=== PATIENT | female | born 1980 | race Caucasian/White ===

== ENCOUNTER 2017-04-26 15:15 | Outpatient (CLI) | payer OTHER | END 2017-04-26 15:16 | disposition home or self-care (01) | LOC: LAB.R 15:15 | PROVIDERS: ATTEND Registered Nurse | DX: R82.90 Unspecified abnormal findings in urine (principal) | CPT/HCPCS: 87086 ==

== ENCOUNTER 2017-04-30 14:01 | Outpatient (CLI) | payer OTHER ==
[2017-04-30 14:44] LABS: BASOPHILS % (AUTO) 0.3 %; EOSINOPHILS # (AUTO) 0.4 10^3/uL (0.0-0.7); EOSINOPHILS % (AUTO) 4.6 %; HGB - HEMOGLOBIN 12.4 g/dL (12.0-16.0); LYMPHOCYTES # (AUTO) 1.9 10^3/uL (1.5-3.5); MEAN CORPUSCULAR HEMOGLOBIN 31.4 pg (27.0-31.0); MEAN CORPUSCULAR HGB CONC 34.3 g/dL (32.0-36.0); MEAN CORPUSCULAR VOLUME 91.5 fL (81.0-99.0); MEAN PLATELET VOLUME 8.1 fL (7.9-10.8); MONOCYTES # (AUTO) 0.5 10^3/uL (0.0-1.0); MONOCYTES % (AUTO) 5.8 %; NEUTROPHILS # (AUTO) 6.1 10^3/uL (1.5-6.6); NEUTROPHILS % (AUTO) 68.3 %; PLT - PLATELET COUNT 171 10^3/uL (130-450); RED BLOOD COUNT 3.97 10^6/uL (4.20-5.40); RED CELL DISTRIBUTION WIDTH 13.1 % (12.0-15.0); WHITE BLOOD COUNT 8.9 x10^3/uL (4.8-10.8)
[2017-04-30 14:55] LABS: BILIRUBIN,URINE NEGATIVE (NEGATIVE); GLUCOSE, URINE (UA) NEGATIVE (NEGATIVE); KETONES,URINE (UA) NEGATIVE (NEGATIVE); LEUKOCYTE ESTERASE, URINE NEGATIVE (NEGATIVE); NITRITE,URINE NEGATIVE (NEGATIVE); OCCULT BLOOD,URINE NEGATIVE (NEGATIVE); PROTEIN,URINE NEGATIVE (NEGATIVE); UROBILINOGEN,URINE 0.2 (NORMAL) E.U./dL (NORMAL)
[2017-04-30 14:59] LABS: CLARITY,URINE CLEAR (CLEAR)
[2017-04-30 15:01] LABS: BACTERIA,URINE None Seen /HPF (None Seen); MUCUS,URINE Marked Strands; RBC,URINE None Seen /HPF (0-5); SQUAMOUS EPITHELIAL CELL,UR FEW Squamous (<= Few)
[2017-05-01 13:41] LABS: HEPATITIS B SURFACE ANTIGEN NON-REACTIVE (NON-REACTIVE)
[2017-05-01 14:17] LABS: HIV AG/AB 4TH GEN NON-REACTIVE (NON-REACTIVE)
== END 2017-04-30 14:02 | disposition home or self-care (01) ==
LOC: LAB 14:01
PROVIDERS: ATTEND Registered Nurse
DX: Z36.9 Encounter for antenatal screening, unspecified (principal)
CPT/HCPCS: 36415; 81001; 81599; 85025; 86592; 86762; 86850; 86900; 86901; 87340; 87389

== ENCOUNTER 2017-07-13 07:48 | Outpatient (CLI) | payer OTHER ==
--- NOTE | 2017-07-16 15:19 | Ultrasound Report ---
OB ULTRASOUND: 07/13/2017 CLINICAL INDICATION: anatomy. TECHNIQUE: Real-time scanning was performed with goodwill representative static images obtained. LAST MENSTRUAL PERIOD -- Clinical Age -- US Age 22 weeks 2 days EFW Hadlock 508 grams EFW% Hadlock -- Heart Rate 130 bpm EDC -- US EDC 11/14/2017 BPD Hadlock 22 weeks 1 day; Mean mm 53 HC Hadlock 22 weeks 0 days; Mean mm 198 AC Hadlock 22 weeks 6 days; Mean mm 181 FL Hadlock 22 weeks 1 day; Mean mm 38 Presentation variable Placental Location anterior Cervical Length TA; 4.6 cm Amniotic Fluid subjectively normal; MVP 6.9 cm FINDINGS There is a single viable intrauterine gestation, in variable presentation. heart rate is 130 BPM. The placenta is anterior, without evidence of previa. Amniotic fluid volume is subjectively normal, with the deepest pocket of 6.9 cm. By size, the fetus measures 22 weeks 2 days (uncertain LMP). The following anatomic structures were visualized and appear normal: The intracranial contents, including the ventricles and posterior fossa; the lips and orbits; the spine; the heart, including 4 chamber view and outflow tracts, and diaphragm; the abdominal contents, including the stomach, the bilateral kidneys, and urinary bladder, as well as a normal 3-vessel cord insertion; 4 limbs. No free fluid or adnexal lesion is appreciated. IMPRESSION: SINGLE VIABLE INTRAUTERINE GESTATION, MEASURING 22 WEEKS 2 DAYS BY SIZE. NORMAL ANATOMIC SURVEY. TD: 07/13/2017 11:49 MTDD
== END 2017-07-13 07:49 | disposition home or self-care (01) ==
LOC: DI 07:48
PROVIDERS: ATTEND Nurse Practitioner Obstetrics & Gynecology
DX: Z36.9 Encounter for antenatal screening, unspecified (principal)
CPT/HCPCS: 76811

== ENCOUNTER 2017-08-16 08:39 | Outpatient (CLI) | payer OTHER ==
[2017-08-16 09:58] LABS: HGB - HEMOGLOBIN 11.6 g/dL (12.0-16.0); MEAN CORPUSCULAR HEMOGLOBIN 30.9 pg (27.0-31.0); MEAN CORPUSCULAR HGB CONC 33.9 g/dL (32.0-36.0); MEAN PLATELET VOLUME 7.8 fL (7.9-10.8); RED BLOOD COUNT 3.75 10^6/uL (4.20-5.40); RED CELL DISTRIBUTION WIDTH 13.1 % (12.0-15.0); WHITE BLOOD COUNT 7.2 x10^3/uL (4.8-10.8)
== END 2017-08-16 08:40 | disposition home or self-care (01) ==
LOC: LAB 08:39
PROVIDERS: ATTEND Nurse Practitioner Obstetrics & Gynecology
DX: Z36.9 Encounter for antenatal screening, unspecified (principal)
CPT/HCPCS: 36415; 82950; 86850

== ENCOUNTER 2017-08-31 18:20 | Outpatient (CLI) | payer OTHER | END 2017-08-31 18:21 | disposition home or self-care (01) | LOC: LAB.R 18:20 | PROVIDERS: ATTEND Nurse Practitioner Obstetrics & Gynecology | DX: N89.8 Other specified noninflammatory disorders of vagina (principal) | CPT/HCPCS: 87480; 87510; 87660 ==

== ENCOUNTER 2017-11-02 08:00 | Outpatient (CLI) | payer OTHER | END 2017-11-02 08:01 | disposition home or self-care (01) | LOC: LAB.R 08:00 | PROVIDERS: ATTEND Nurse Practitioner Obstetrics & Gynecology | DX: Z36.85 Encounter for antenatal screening for Streptococcus B (principal) | CPT/HCPCS: 87081 ==

== ENCOUNTER 2017-11-14 05:46 | Inpatient (IN) | payer OTHER ==
--- NOTE | 2017-11-14 07:28 | DELIVERY NOTE ---
Delivery Note - Labor Labor: positive: Spontaneous - Delivery Method Delivery Method: positive: Spontaneous vaginal delivery - Presentation Presentation: positive: Vertex, JAMAL - left occiput anterior - Nuchal Cord Nuchal Cord: positive: None - Amniotic Fluid Description Amniotic Fluid Description: positive: Clear - Episiotomy Type Episiotomy Type: positive: None - Laceration Laceration: positive: None - Delivery Outcome Delivery Outcome: positive: Livebirth - [place]: positive: Placed in direct skin contact with mother, Stimulated, [place] used sex: positive: Male - Cord Cord: positive: 3 vessels - Placenta Placenta: positive: Intact, Spontaneous - Estimated Blood Loss Estimated Blood Loss (in cc): 350 - Post Delivery Events Post Delivery Events: positive: No post delivery events, Shoulder dystocia - Delivery Comments (Free Text/Narrative) Delivery Comments (Free Text/Narrative): Labor: This 37yo @ 38.6wks gestation by 9wk US who presented at 0550 in active labor. Cervix was 9/100/-1, vertex, soft, stretchy. FHR auscultated intermittently and noted to have baseline 120s. Normal labor course. SROM occurred at 0650 and was noted to be a moderate amount of clear fluid. : Normal SVB of a viable male infant. Body cord x 1 - delivery through. Moderate 50 second shoulder dystocia resolved with Roopa. Apgars were 8 and 9 at 1 and 5 min respectively on 11/14/2017 at 0653. The was placed on maternal abdomen, stimulated, dried, and placed skin to skin. The umbilical cord was allowed to stop pulsating at which time it was doubly clamped and cut by FOB. Cord blood was obtained. Placenta delivered spontaneously and intact @ 0703. 3VC. Pt refused active management of the third stage of labor. EBL 350mL. Uterine fundus frim and there is no excessive bleeding. The perineum, vagina, and cervix were inspected and found to be intact. initiated. Family bonding well. Both mother and baby were left in stable condition.
--- NOTE | 2017-11-14 07:48 | HISTORY & PHYSICAL EXAMINATION ---
Admit History - Instructions [place]/Slash: -Left hand click circles element as positive or present. -Right hand click slashes element as negative or not present. - Visit Reason Visit Reason: Contractions - : 5 Parity: 4 Premature: 0 Ectopic: 0 : 0 Care: positive: [facility] Risk/History: positive: None Complications This : positive: None Smoking Status: Never smoker - Mother's Labs Mother's Blood Type: positive: A Mother's RH: positive: Negative GBS: positive: Group B Step Negative Rubella Status: positive: Immune Physical - Abdominal Exam Vital Signs: Temp Pulse Resp BP Pulse Ox 36.4 C L 72 20 131/77 H 100 11/14/17 07:29 11/14/17 07:29 11/14/17 07:29 11/14/17 07:29 11/14/17 07:29 Contraction Intensity: positive: Strong Uterine Resting Tone: positive: Soft - Monitoring Heart Rate Baseline: 120 Strip Review: positive: Category I - Presentation Presentation: positive: Vertex - Vaginal Exam Dilation (in cm): 9 Effacement (%): 100 Station: positive: 0 Cervical Position: positive: Anterior - Speculum Exam Speculum Exam Performed: positive: No Plan for Labor - Plan For Labor I expect patient to be DC'd or transferred within 96 hours.: Yes Plan for Labor: This 37yo presents with c/o contractions and leaking of clear vaginal fluid at 38.6wks gestation by 9wk U/S. She reports + movement. Declines intervention. Declines IV access. Declines active management of the third stage. Declines pitocin administration. OB History: G1: 03/23/2006, 38wks, 8lbs 8 oz, vaginal delivery, male infant, precipitous delivery G2: 10/21/2008, 40wks, 7lb 5 oz, vaginal delivery, male , precipitous delivery G3: 04/28/2014, 40 wks, 6lbs 4oz, vaginal delivery, female infant with preciptious delivery G4: 07/26/2011, 40wks, 7lbs 11oz, vaginal delivery, female with preciptious delivery G5: Current Dating Criteria: Unsure LMP First ultrasound at 9w5d gestation Serial exams 13-38wks agrees PMHx: unremarkable Rhogam 08/31/2017 Tdap declined Influenza declined labs: A neg, antibody neg Hgb 12.4; Hct 36.3 PLT 171 Rubella immune Hep B non-reactive HIV neg RPR non-reactive U/S: FAS WNL, anterior placenta, no previa
[2017-11-14] MEDS ORDERED: HYDROCORTISONE/PRAMOXINE 10 GM PR PRN (08:25)
[2017-11-14] MEDS ORDERED: WITCH HAZEL/GLYCERIN 1 EACH MED..PAD TOP PRN (08:25)
[2017-11-14] MEDS: ACETAMINOPHEN 500 MG TABLET PO SCH ×2 (10:27→17:01)
[2017-11-14] MEDS: IBUPROFEN 800 MG TABLET PO SCH ×3 (10:28→21:29)
[2017-11-14] MEDS: DOCUSATE SODIUM 100 MG CAPSULE PO SCH ×2 (10:28→21:29)
[2017-11-15] MEDS: ACETAMINOPHEN 500 MG TABLET PO SCH ×2 (02:27→09:10)
[2017-11-15] MEDS: IBUPROFEN 800 MG TABLET PO SCH ×2 (07:31→09:10)
--- NOTE | 2017-11-15 08:58 | PROVIDER PROGRESS NOTE ---
Subjective - Subjective Subjective: S: Bonding well with baby. without difficulty. Bleeding decreased and is light. Pain well controlled with no medications. She is feeling sore but well rested. O: Heart RRR w/o M/G/R, lungs CTAB, abdomen soft and nontender with fundus firm at U-1. Bilateral LE's no edema. A: 37yo -->P5 w/p TSVD of viable male infant P: Continue routine pp care and meds. Plan discharge home tomorrow. Objective - Vital Signs/Intake & Output Vital Signs: Vital Signs x48h Temp Pulse Resp BP Pulse Ox 11/15/17 08:32 36.7 C 72 18 100/63 98 11/15/17 05:30 36.8 C 69 18 107/61 97
[2017-11-15] MEDS: DOCUSATE SODIUM 100 MG CAPSULE PO SCH (09:10)
--- NOTE | 2017-11-16 13:49 | Discharge Plan ---
Discharge Plan Disposition: 01 Home, Self Care Condition: Good Diet: Regular Activity Restrictions: No Restrictions Shower Restrictions: No Driving Restrictions: No Weight Bearing: Full Weight No Smoking: If you smoke, Please STOP! Call for help.
--- NOTE | 2017-11-16 13:52 | PROVIDER PROGRESS NOTE ---
Subjective - Subjective Subjective: S: Bonding well with baby. without difficulty. Pain well controlled with no use of medications. Perineum comfortable. Some lower back discomfort but overall feeling well. She is anxious to go home today. O: BP 104/67, HR 72, T 36.8, RR 19 Heart RRR w/o M/G/R, lungs CTAB, abdomen soft and nontender with fundus firm at U-2. Bilateral LE's no edema. Perineum intact A: 37yo -->P5 s/p TSVD of viable male over intact perineum P: Reviewed self care and warning s/sx. She intends to f/u with myself at [facility] in 3 weeks for visit. She declines medications. She verbalized understanding and agrees to above plan. Denies further questions or concerns at this time. Objective - Vital Signs/Intake & Output Vital Signs: Vital Signs x48h Temp Pulse Resp BP Pulse Ox 11/16/17 08:07 36.8 C 72 19 104/67 96 Intake & Output: Intake & Output 11/13/17 11/14/17 11/15/17 11/16/17 23:59 23:59 23:59 23:59 Output Total 3 Balance -3
[2017-11-16 13:54] VITALS: BP 117/66
--- NOTE | 2017-11-20 03:03 | DISCHARGE SUMMARY ---
Physician: FINA Beal DATE OF ADMISSION: 11/14/2017 DATE OF DISCHARGE: 11/16/2017 DIAGNOSES ON ADMISSION 1. A 37-year-old G5, P4-0-0-4 at 38.6 weeks gestation. 2. Active labor. DIAGNOSES AT DISCHARGE 1. A 37 year old s/p TSVD of viable male 2. Normal Recovery BRIEF HISTORY: She is a patient of [facility] who presents on 11/14/2017 with complaints of contractions. Cervix was 9, 100, -1 vertex, soft. SROM occurred at 0650 and it was noted to be a moderate amount of clear fluid. She spontaneously delivered a viable male infant named Nithin on 2017 at 0653. Apgars were 8 and 9 at one and five minutes, respectively. EBL 350 mL. The perineum, vagina and cervix were inspected and found to be intact. She has been doing well in her course. She is ambulating and tolerating a regular diet. She is urinating without difficulty and her lochia is normal. Her pain is well controlled without medications. She will be discharged home today on day #2 with instructions to return in three weeks for visit. She has been given precautions to call if she has any worsening fevers, chills, abdominal pain, increased vaginal bleeding or foul smelling vaginal lochia. TD: 11/19/2017 10:18 MTDD
== END 2017-11-16 14:15 | disposition home or self-care (01) | DRG 775 ==
LOC: WFO 05:46 → FBP 05:47 → WFO 05:57 → FBP 05:58 → OBS 11-15 15:46
PROVIDERS: ADMIT Nurse Practitioner Obstetrics & Gynecology; ATTEND Nurse Practitioner Obstetrics & Gynecology
PROC: 10E0XZZ Delivery of Products of Conception, External Approach (ICD-10-PCS; principal; 2017-11-14)
DX: O66.0 Obstructed labor due to shoulder dystocia (principal); O69.89X0 Labor and delivery complicated by other cord complications, not applicable or unspecified; Z3A.38 38 weeks gestation of pregnancy; Z37.0 Single live birth
CPT/HCPCS: 99212

== ENCOUNTER 2020-08-02 20:17 | Emergency (ER) | payer OTHER ==
[2020-08-02 20:45] LABS: BASOPHILS % (AUTO) 0.8 %; EOSINOPHILS # (AUTO) 0.4 10^3/uL (0.0-0.7); EOSINOPHILS % (AUTO) 8.1 %; HCT - HEMATOCRIT 35.9 % (37.0-47.0); HGB - HEMOGLOBIN 11.7 g/dL (12.0-16.0); LYMPHOCYTES # (AUTO) 2.1 10^3/uL (1.5-3.5); LYMPHOCYTES % (AUTO) 40.9 %; MEAN CORPUSCULAR HEMOGLOBIN 30.2 pg (27.0-31.0); MEAN CORPUSCULAR HGB CONC 32.6 g/dL (32.0-36.0); MEAN CORPUSCULAR VOLUME 92.8 fL (81.0-99.0); MEAN PLATELET VOLUME 10.1 fL (7.9-10.8); MONOCYTES # (AUTO) 0.5 10^3/uL (0.0-1.0); MONOCYTES % (AUTO) 10.6 %; NEUTROPHILS % (AUTO) 39.4 %; PLT - PLATELET COUNT 193 10^3/uL (130-450); RED BLOOD COUNT 3.87 10^6/uL (4.20-5.40); RED CELL DISTRIBUTION WIDTH 12.7 % (12.0-15.0); WHITE BLOOD COUNT 5.1 x10^3/uL (4.8-10.8)
[2020-08-02 20:56] LABS: CALCIUM 9.4 mg/dL (8.5-10.3); CREATININE 0.6 mg/dL (0.4-1.0)
--- NOTE | 2020-08-02 21:10 | ED Physician Documentation ---
PD HPI FEMALE - Stated complaint Stated Complaint: FEMALE -5 WKS - Chief complaint Chief Complaint: Abd Pain - History obtained from History obtained from: Patient - History of Present Illness Timing - onset: How many days ago (33) Timing - duration: Days Timing - details: Gradual onset, Still present Associated symptoms: Vaginal bleeding Contributing factors: OB-SPEECH LANGUAGE SPECIALIST History: G (5), P (4) Similar symptoms before: Has not had sx before Recently seen: Not recently seen - Additional information Additional information: 39-year-old female who has a positive test 10 days ago has developed bleeding consistent with a menstrual period and the amount of blood that she is having. She is not having much in the way of pain. She has not had bleeding in early previously. She is not having much in the way of breast tenderness. She was asked by her obstetrical nurse practitioner to come into the emergency department for RhoGam. She has had RhoGam previously in her pregnancies at 20 and 40 weeks. Review of Systems Constitutional: denies: Fever Ears: denies: Ear pain Nose: denies: Congestion Throat: denies: Sore throat Respiratory: denies: Cough GI: denies: Vomiting PD PAST MEDICAL HISTORY - Allergies Allergies/Adverse Reactions: Allergies Allergy/AdvReac Type Severity Reaction Status Date / Time No Known Drug Allergies Allergy Verified 08/02/20 20:18 - Social History Smoking Status: Never smoker PD ED PE NORMAL - Vitals Vital signs reviewed: Yes (Normal) - General General: Alert and oriented X 3, No acute distress, Well developed/nourished - HEENT HEENT: Atraumatic, PERRL, EOMI - Neck Neck: Supple, no meningeal sign, No bony TTP - Cardiac Cardiac: RRR, No murmur - Respiratory Respiratory: No respiratory distress, Clear bilaterally - Abdomen Abdomen: Soft, Non tender - Back Back: No CVA TTP - Derm Derm: Normal color, Warm and dry, No rash - Extremities Extremities: No deformity, No edema - Neuro Neuro: Alert and oriented X 3, chopper operator 2-12 intact, No motor deficit, No sensory deficit, Normal speech Eye Opening: Spontaneous Motor: Obeys Commands Verbal: Oriented GCS Score: 15 - Psych Psych: Normal mood, Normal affect Results - Vitals Vitals: Vital Signs - 24 hr 08/02/20 08/02/20 20:19 22:48 Temperature 36.5 C 36.9 C Heart Rate 74 61 Respiratory 16 16 Rate Blood Pressure 129/73 107/68 O2 Saturation 99 100 Oxygen O2 Source Room air - Labs Labs: Laboratory Tests 08/02/20 08/02/20 08/02/20 20:39 20:39 20:39 WBC 5.1 RBC 3.87 L Hgb 11.7 L Hct 35.9 L MCV 92.8 MCH 30.2 MCHC 32.6 RDW 12.7 Plt Count 193 MPV 10.1 Neut # (Auto) 2.0 Lymph # (Auto) 2.1 [place] # (Auto) 0.5 Eos # (Auto) 0.4 Baso # (Auto) 0.0 Absolute Nucleated RBC 0.00 Nucleated RBC % 0.0 Sodium 139 Potassium 4.0 Chloride 103 Carbon Dioxide 29 Anion Gap 7.0 BUN 8 Creatinine 0.6 Estimated GFR (MDRD) 112 Glucose 103 H Calcium 9.4 HCG, Quant 8.54 - Rads (name of study) Pelvic ultrasound Radiology: Prelim report reviewed (Impression: An intrauterine gestation is not found, and ectopic is not seen, and there is no secondary sonographic evidence of ectopic such as hemorrhagic complex fluid within the peritoneal space.), EMP read indepedently, See rad report PD MEDICAL DECISION MAKING - ED course Complexity details: reviewed results, re-evaluated patient, considered differential, d/w patient ED course: 39-year-old female with what appears to be early loss has a quantitative hCG of 8.4 today and she had positive test 10 days ago. This seems likely that her number is diminishing and this likely represents a miscarriage. She is recommended to have a repeat beta-hCG done in 2 days time and she is administered RhoGam. Departure - Departure Disposition: 01 Home, Self Care Clinical Impression: Miscarriage Condition: Stable Instructions: ED Miscarriage Incom Follow-Up: Noa Looney, MARIO ALBERTO, DIRECTOR OF LITIGATION [Provider Admit Priv/Credential] - Comments: You will need to follow-up with Noa Lee in 2 days time for a repeat beta hCG. Your value today was 8.54 and this is a very low level. This likely represents a completed miscarriage. There is always a possibility of ectopic and a slowly rising hCG. Although this seems unlikely a repeat hCG is indicated. Discharge Date/Time: 08/02/20 22:56
[2020-08-02] MEDS ORDERED: RHO(D) IMMUNE GLOBULIN 300 MCG SYRINGE IM STA (21:34)
--- OUTSIDE RECORDS SUMMARY | 2020-08-02 21:48 | EXTERNAL MEDICAL SUMMARY RPT | Continuity of Care Document ---
:1980 Demographics Phone Unavailable Preferred Language Unknown Marital Status Unknown Baptism Affiliation Unknown Race Unknown Ethnic Group Unknown Author Organization [facility] Address [address] [place] [address] Phone Social History date description facility [id number]
[2020-08-02] MEDS ORDERED: RHO(D) IMMUNE GLOBULIN 300 MCG SYRINGE ONE (21:59)
--- NOTE | 2020-08-02 22:08 | Ultrasound Report ---
PROCEDURE: OB First Trimester w/TV INDICATIONS: VB, PREG OUTSIDE/PRIOR DATING DATA: Last menstrual period (LMP): Not available. LMP-based estimated date of delivery (ANGY): Not available. First dating scan (date and location): This study, 08/02/2020. Estimated date of delivery (ANGY) from first dating scan: Viable gestation is not identified, ectopic gestation also not seen.. TECHNIQUE: Real-time scanning was performed of the fetus and maternal pelvic organs, with image documentation. Endovaginal scanning was also performed to better visualize the fetus and maternal ovaries. COMPARISON: None FINDINGS: No intrauterine gestation is identified. No secondary sonographic evidence of ectopic preg krystal is found. Embryo: Not seen. Measurement variability in dating: +/- 4 weeks by LMP, +/- 7 days by mean sac diameter (use before 6 weeks gestation if crown-rump length not able to be measured), +/- 5 days by crown-rump length (6-12 weeks gestation). Maternal organs: Ovaries normal. IMPRESSION: An intrauterine gestation is not found, an ectopic is not seen, and there is no secondary s onographic evidence of ectopic such as hemorrhagic complex fluid within the peritoneal spac e. Reviewed by: Jose Brown MD on 08/02/2020 10:07 PM PDT Approved by: Jose Brown MD on 08/02/2020 10:07 PM PDT Station ID: [id number]
[2020-08-02 22:49] VITALS: BP 107/68
== END 2020-08-02 22:56 | disposition home or self-care (01) ==
LOC: ED 20:17
DX: O03.9 Complete or unspecified spontaneous abortion without complication (principal)
CPT/HCPCS: 36415; 80048; 84702; 85025; 86900; 86901; 96372; 99284

== ENCOUNTER 2020-08-05 07:32 | Outpatient (CLI) | payer OTHER | END 2020-08-05 07:33 | disposition home or self-care (01) | LOC: LAB 07:32 | PROVIDERS: ATTEND Advanced Practice Midwife | DX: O03.9 Complete or unspecified spontaneous abortion without complication (principal) | CPT/HCPCS: 36415; 84702 ==

== ENCOUNTER 2020-10-11 13:28 | Outpatient (CLI) | payer OTHER ==
[2020-10-11 13:54] LABS: BASOPHILS % (AUTO) 0.3 %; EOSINOPHILS # (AUTO) 0.4 10^3/uL (0.0-0.7); EOSINOPHILS % (AUTO) 3.9 %; HCT - HEMATOCRIT 38.1 % (37.0-47.0); HGB - HEMOGLOBIN 12.3 g/dL (12.0-16.0); LYMPHOCYTES # (AUTO) 1.8 10^3/uL (1.5-3.5); LYMPHOCYTES % (AUTO) 17.8 %; MEAN CORPUSCULAR HEMOGLOBIN 29.4 pg (27.0-31.0); MEAN CORPUSCULAR HGB CONC 32.3 g/dL (32.0-36.0); MEAN CORPUSCULAR VOLUME 91.1 fL (81.0-99.0); MEAN PLATELET VOLUME 10.6 fL (7.9-10.8); MONOCYTES # (AUTO) 0.7 10^3/uL (0.0-1.0); MONOCYTES % (AUTO) 6.8 %; NEUTROPHILS # (AUTO) 7.3 10^3/uL (1.5-6.6); NEUTROPHILS % (AUTO) 70.9 %; PLT - PLATELET COUNT 212 10^3/uL (130-450); RED BLOOD COUNT 4.18 10^6/uL (4.20-5.40); RED CELL DISTRIBUTION WIDTH 13.5 % (12.0-15.0); WHITE BLOOD COUNT 10.3 x10^3/uL (4.8-10.8)
[2020-10-12 11:52] LABS: HEPATITIS B SURFACE ANTIGEN NON-REACTIVE (NON-REACTIVE)
[2020-10-12 13:41] LABS: HEPATITIS C ANTIBODY NON-REACTIVE (NON-REACTIVE)
[2020-10-12 16:18] LABS: HIV AG/AB 4TH GEN NON-REACTIVE (NON-REACTIVE)
== END 2020-10-11 13:29 | disposition home or self-care (01) ==
LOC: LAB 13:28
PROVIDERS: ATTEND Nurse Practitioner Obstetrics & Gynecology
DX: Z36.89 Encounter for other specified antenatal screening (principal)
CPT/HCPCS: 36415; 85025; 86592; 86762; 86787; 86803; 86850; 86870; 86880; 86900; 86901; 87340; 87389

== ENCOUNTER 2020-10-13 15:27 | Outpatient (CLI) | payer OTHER ==
--- NOTE | 2020-10-14 16:53 | Ultrasound Report ---
PROCEDURE: OB First Trimester w/TV INDICATIONS: TEST POSITIVE OUTSIDE/PRIOR DATING DATA: Last menstrual period (LMP): Not available. LMP-based estimated date of delivery (ANGY): Not available. First dating scan (date and location): 08/02/2020. Estimated date of delivery (ANGY) from first dating scan: Current study allows visualization of a viab le gestation and delivery date is projected to be centered on 05/22/2021.. The below data below was generated using the above ANGY of 05/22/2021 TECHNIQUE: Real-time scanning was performed of the fetus and maternal pelvic organs, with image documentation. Endovaginal scanning was also performed to better visualize the fetus and maternal ovaries. COMPARISON: 08/02/2020 FINDINGS: There is a single living intrauterine gestation. Embryo: [place]-rump length measures 1.9 cm which correlates with a gestational age of 8 weeks 3 days. Adjacent to the fetus, separate from the fetus, is a yolk sac and a small amount of internal debris. This is indeterminate in origin. For example, it could represent a blighted twin ovum. Heart rate: 164 Measurement variability in dating: +/- 4 weeks by LMP, +/- 7 days by mean sac diameter (use before 6 weeks gestation if crown-rump length not able to be measured), +/- 5 days by crown-rump length (6-12 weeks gestation). Maternal organs: Ovaries normal considering gestational status.. IMPRESSION: Single living intrauterine gestation with normal heart rate of 164 bpm and there is a normal-appearin g yolk sac and a small amount of internal debris adjacent to the viable gestation, but separate. As n oted above this is indeterminate in etiology and could represent evidence of a involuting blighted ov um. Follow-up assessment by repeat early OB ultrasound in 2 weeks is recommended. anatomic surv ey at 20 weeks gestation also is recommended. Reviewed by: Jose Brown MD on 10/14/2020 4:52 PM PDT Approved by: Jose Brown MD on 10/14/2020 4:52 PM PDT Station ID: [id number]
== END 2020-10-13 15:28 | disposition home or self-care (01) ==
LOC: DI 15:27
PROVIDERS: ATTEND Advanced Practice Midwife
DX: Z32.01 Encounter for pregnancy test, result positive (principal); Z87.59 Personal history of other complications of pregnancy, childbirth and the puerperium

== ENCOUNTER 2020-10-21 08:00 | Outpatient (CLI) | payer OTHER ==
[2020-10-21 15:59] LABS: MUDS CUTOFF CONCENTRATIONS CUTOFF CONC BELOW:
[2020-10-21 16:15] LABS: BILIRUBIN,URINE NEGATIVE (NEGATIVE); GLUCOSE, URINE (UA) NEGATIVE (NEGATIVE); KETONES,URINE (UA) TRACE mg/dL (NEGATIVE); LEUKOCYTE ESTERASE, URINE NEGATIVE (NEGATIVE); NITRITE,URINE NEGATIVE (NEGATIVE); OCCULT BLOOD,URINE NEGATIVE (NEGATIVE); PROTEIN,URINE NEGATIVE (NEGATIVE); UROBILINOGEN,URINE 0.2 (NORMAL) E.U./dL (NORMAL)
[2020-10-21 16:28] LABS: BACTERIA,URINE Rare /HPF (None Seen); CLARITY,URINE CLEAR (CLEAR); RBC,URINE None Seen /HPF (0-5); SQUAMOUS EPITHELIAL CELL,UR RARE Squamous (<= Few); WBC,URINE 0-3 /HPF (0-5)
[2020-10-21 16:32] LABS: AMPHETAMINE SCREEN,URINE NEGATIVE (NEGATIVE); BARBITURATE SCREEN,UR NEGATIVE (NEGATIVE); BENZODIAZEPINES SCREEN, URINE NEGATIVE (NEGATIVE); COCAINE SCREEN URINE NEGATIVE (NEGATIVE); METHADONE SCREEN, URINE NEGATIVE (NEGATIVE); METHAMPHETAMINES SCREEN, URINE NEGATIVE (NEGATIVE); OPIATE SCREEN, URINE NEGATIVE (NEGATIVE); OXYCODONE SCREEN, URINE NEGATIVE (NEGATIVE); PROPOXYPHENE SCREEN, URINE NEGATIVE (NEGATIVE); THC CANNABINOID SCREEN, URINE NEGATIVE (NEGATIVE); TRICYCLIC ANTIDEPRESSANT,URINE NEGATIVE (NEGATIVE)
[2020-10-21 21:15] LABS: CHLAMYDIA TRACHOMATIS DNA NEGATIVE (NEGATIVE); NEISSERIA GONORRHOEAE DNA NEGATIVE (NEGATIVE); TRICHOMONAS VAGINALIS DNA NEGATIVE (NEGATIVE)
== END 2020-10-21 23:59 | disposition home or self-care (01) ==
LOC: LAB.WC 08:00
PROVIDERS: ATTEND Advanced Practice Midwife
DX: O09.529 Supervision of elderly multigravida, unspecified trimester (principal); Z36.89 Encounter for other specified antenatal screening
CPT/HCPCS: 80306; 81001; 87086; 87491; 87591; 87661

== ENCOUNTER 2020-11-03 16:46 | Outpatient (CLI) | payer OTHER ==
--- NOTE | 2020-11-04 10:47 | Ultrasound Report ---
PROCEDURE: OB First Trimester INDICATIONS: SUPERVISION OF ELDERLY MULTIGRAVIDA, DEA VILA. OUTSIDE/PRIOR DATING DATA: Last menstrual period (LMP): None available. LMP-based estimated date of delivery (ANGY): Not available. First dating scan (date and location): 10/13/2020 at [facility]. Estimated date of delivery (ANGY) from first dating scan: 05/22/2021. The below data below was generated using the ultrasound ANGY of 05/22/2021 TECHNIQUE: Real-time scanning was performed of the fetus and maternal pelvic organs, with image documentation. COMPARISON: OB ultrasound 10/13/2020 and 08/02/2020 FINDINGS: Single live intrauterine is visualized. Embryo: [place]-rump length measures 4.8 cm, compatible with a gestational age of 11 weeks 4 days. The previously seen internal debris and yolk sac are no longer visualized. A small irregular hypoechoic lesion adjacent to the chorion measuring 3.2 x 0.9 x 3.1 cm may represent a small subchorionic hemorr robert, which has decreased in size when compared to the ultrasound from 10/13/2020. Heart rate: 164 bpm Measurement variability in dating: +/- 4 weeks by LMP, +/- 7 days by mean sac diameter (use before 6 weeks gestation if crown-rump length not able to be measured), +/- 5 days by crown-rump length (6-12 weeks gestation). Maternal organs: Ovaries within normal limits. IMPRESSION: 1. Single live intrauterine with appropriate interval growth. 2. Previously seen yolk sac and debris no longer visualized. 3. Possible small subchorionic hemorrhage has decreased in size. Reviewed by: Randy Cuenca MD on 11/04/2020 10:46 AM PDT Approved by: Randy Cuenca MD on 11/04/2020 10:46 AM PDT Station ID: [id number]
== END 2020-11-03 16:47 | disposition home or self-care (01) ==
LOC: DI 16:46
PROVIDERS: ATTEND Advanced Practice Midwife
DX: O09.521 Supervision of elderly multigravida, first trimester (principal); Z3A.11 11 weeks gestation of pregnancy

== ENCOUNTER 2021-01-04 13:59 | Outpatient (CLI) | payer OTHER ==
--- NOTE | 2021-01-04 23:08 | Ultrasound Report ---
PROCEDURE: OB Detailed Eval INDICATIONS: SUPERVISION OF ELDERLY MUTLIGRAVIDA OUTSIDE/PRIOR DATING DATA: Last menstrual period (LMP): 07/30/2020. LMP-based estimated date of delivery (ANGY): 05/06/2021. First dating scan (date and location): 10/13/2020. Estimated date of delivery (ANGY) from first dating scan: 05/22/2021. The below data below was generated using the ultrasound ANGY of 05/22/2021 TECHNIQUE: Real-time scanning was performed of the fetus, with image documentation and biometric measurements. Endovaginal scanning: Not performed COMPARISON: 10/13/2020, 11/03/2020 FINDINGS: General: A single living intrauterine gestation is present. Presentation: Breech Placenta: Placental position is anterior, without previa. Amniotic fluid index: 15.1 cm, normal for gestational age. Largest pocket is 6.7 cm heart rate: 137 beats per minute. Maternal cervical canal: 3.5 cm long; normal length is 2.5 cm or more. biometrics: Biparietal diameter: 4.8 cm, 20 weeks, 4 days Head circumference: 18.1 cm, 20 weeks, 4 days Abdominal circumference: 16.6 cm, 21 weeks, 4 days Femur length: 3.22 cm, 20 weeks, 0 days Estimated gestational age from initial scan: 20 weeks, 2 days. Composite gestational age from present scan: 20 weeks, 5 days Estimated weight and percentile: 380 g, 76th percentile Measurement variability in biometric dating: +/- 10 days from 12-20 weeks gestation, +/- 2 weeks from 20-30 weeks gestation, +/- 3 weeks at 30 weeks gestation or later. Anatomic survey: Neuro: Ventricles are normal at less than 10 mm. Cisterna magna is normal at 3-11 mm. Cerebellum i s normal in size and morphology. Nuchal skin fold: Normal at less than 6 mm between 14 and 20 weeks gestational age. Face: Nose and lips, facial profile are normal. Spine: No evidence for spina bifida. Heart: 4-chambered heart is present, with normal ventricular outflow tracts. Diaphragm: Diaphragm is intact. Stomach: Left-sided stomach is present. Kidneys: No hydronephrosis. Normal is less than 5 mm in 2nd trimester, less than 7 mm in 3rd trimester. Cord: 3 vessel cord has orthotopic insertion. Bladder: Normal in size. Extremities: All 4 extremities are visualized. IMPRESSION: 1. Single live intrauterine with composite gestational age in good agreement with the previ ously assigned gestational age. 2. Symmetric growth and normal anatomy. Reviewed by: Karissa Parsons MD on 01/04/2021 11:07 PM PDT Approved by: Karissa Parsons MD on 01/04/2021 11:07 PM PDT Station ID: [id number]
== END 2021-01-04 14:00 | disposition home or self-care (01) ==
LOC: DI 13:59
PROVIDERS: ATTEND Nurse Practitioner Obstetrics & Gynecology
DX: O09.522 Supervision of elderly multigravida, second trimester (principal); Z3A.20 20 weeks gestation of pregnancy

== ENCOUNTER 2021-02-23 10:32 | Outpatient (CLI) | payer OTHER ==
[2021-02-23 10:57] LABS: HCT - HEMATOCRIT 34.7 % (37.0-47.0); HGB - HEMOGLOBIN 11.1 g/dL (12.0-16.0); MEAN CORPUSCULAR VOLUME 93.8 fL (81.0-99.0); MEAN PLATELET VOLUME 10.3 fL (7.9-10.8); RED BLOOD COUNT 3.7 10^6/uL (4.20-5.40); WHITE BLOOD COUNT 9.1 x10^3/uL (4.8-10.8)
== END 2021-02-23 10:33 | disposition home or self-care (01) ==
LOC: LAB 10:32
PROVIDERS: ATTEND Nurse Practitioner Obstetrics & Gynecology
DX: O09.529 Supervision of elderly multigravida, unspecified trimester (principal); Z36.89 Encounter for other specified antenatal screening; Z67.91 Unspecified blood type, Rh negative
CPT/HCPCS: 36415; 85027; 86850

== ENCOUNTER 2021-04-28 08:00 | Outpatient (CLI) | payer OTHER | END 2021-04-28 23:59 | LOC: LAB 08:00 | PROVIDERS: ATTEND Obstetrics & Gynecology | DX: O09.529 Supervision of elderly multigravida, unspecified trimester (principal) | CPT/HCPCS: 87797 ==

== ENCOUNTER 2021-05-20 09:56 | Inpatient (IN) | payer OTHER ==
[2021-05-20] MEDS ORDERED: METHYLERGONOVINE 0.2 MG/ML VIAL IM ONE (10:24)
[2021-05-20] MEDS ORDERED: miSOPROStoL 200 MCG TABLET ONE (10:25)
[2021-05-20] MEDS ORDERED: OXYTOCIN 10 UNIT/ML VIAL ONE (10:25)
[2021-05-20] MEDS ORDERED: METHYLERGONOVINE 0.2 MG/ML VIAL ONE (10:26)
[2021-05-20] MEDS ORDERED: miSOPROStoL 200 MCG TABLET PR ONE (10:27)
[2021-05-20] MEDS ORDERED: OXYTOCIN 10 UNIT/ML VIAL IM ONE (10:28)
--- NOTE | 2021-05-20 10:35 | HISTORY & PHYSICAL EXAMINATION ---
Admit History - Visit Reason Visit Reason: Contractions - Care: positive: [facility] Risk/History: positive: None Complications This : positive: None Smoking Status: Never smoker - Mother's Labs Mother's RH: positive: Negative GBS: positive: Group B Strep Positive Rubella Status: positive: Immune Meds/Allgy - Allergies Allergies/Adverse Reactions: Allergies Allergy/AdvReac Type Severity Reaction Status Date / Time No Known Drug Allergies Allergy Verified 08/02/20 20:18 Review of Systems - Constitutional Constitutional: denies: Fatigue, Fever, Chills - Eyes Eyes: denies: Blurred vision, Spots in vision, Dipolpia - Cardiovascular Cariovascular: denies: Irregular heart rate, Chest pain, Edema - Respiratory Respiratory: denies: Cough, SOB at rest - Gastrointestinal Gastrointestinal: denies: Change in bowel habits, Nausea, Vomiting - Integumentary Integumentary: denies: Rash, Pruritis - Neurological Neurological: denies: Headache Physical - Abdominal Exam Contraction Frequency (min/apart): 2-4 Contraction Intensity: positive: Strong Uterine Resting Tone: positive: Soft - Monitoring Heart Rate Baseline: 130 Strip Review: positive: Category I - Presentation Presentation: positive: Vertex - Vaginal Exam Membranes: positive: Membranes intact Dilation (in cm): 7 Effacement (%): 90 Station: positive: -2 Cervical Position: positive: Anterior - Speculum Exam Speculum Exam Performed: positive: No Plan for Labor - Plan For Labor I expect patient to be DC'd or transferred within 96 hours.: Yes Plan for Labor: HPI: Mikey is a 40yo who presents to [facility] with c/o contraction that started this morning at 0800. She reports yesterday she had one teaspoon sized wet spot on her pad when she went to the bathroom but does not think it was her water breaking. She has not had anything else since last night when she felt slightly more leaking. She is confident that her water has not broken. She is aware of her increased risk of bleeding that could lead to if active management of the third stage is not provided and she declines this. She is aware that she is at increased risk secondary to her gravidy and parity and she declines. She declines IV access and is aware that this increases her risk further as it may result in delayed treatment of hemorrhage and she declines. She is noted to be GBS positive and she declines treatment. She is aware that this increases the risk of infection, sepsis or and pt continues to decline treatment. She is a patient of [facility] who has received consistent and adequate care for the duration of her . She is noted to be Rh negative a received Rhogam at 28wks per protocol. She declined glucola testing and also declined blood glucose monitoring and was aware of the implications if she has untreated gestational diabetes. She will be admitted for expectant management and intermittent monitoring. hemorrhage medications are in the room and she is type and crossed for 2 units secondary to her increased risk for bleeding . Her is present and supportive at the bedside. Dating criteria: LMP unknown Initial U/S @ 8.3wks dates with ANGY 05/22/2021 Serial exams - agree OB Hx: G1: 03/23/2006; @ 38wks; 7lb5oz; Male G2: 10/21/2008; @ 40wks; 8lb8oz; Male G3: 07/26/2011; @ 40wks; [id number]; Female G4: 09/26/2014; @ 40wks; 8lb4oz; Female G5: 11/14/2017; @ 38wks; Male; precipitous delivery G6: 07/2020 G7: Current Medications: PNV Allergies: NKDA PMHx: unremarkable Surgical Hx: none Social Hx: Never smoker. No ETOH or IVDA Family Hx: unremarkable course: LMP 07/30/2020 (unsure r/t being SAB date) ANGY by LMP: 05/06/2021 Initial U/S @ 8.3wks NOT c/w LMP dating - dates with ANGY 05/22/2021 Final ANGY: 05/22/2021 F/u U/S for second gestational sac - ordered 10/21/2020 A NEG/Rubella immune RHOGAM given 03/01/2021 VZV: immune Genetic testing: declined FAS: WNL. Anterior placenta, no previa. Size c/w dating (EFW 76%tile). 3VC. Glucola - declines; declined BG monitoring Influenza: declined Tdap - declined COVID vaccine - declined. Had COVID infection beginning of third trimester GBS @ 36.4wks - POSITIVE HSV: Denies in self and partner Breast pump Rx 03/15 MOD: . Matty; desires unmedicated delivery; declines pp pitocin, declines active management of the third stage; open to fundal massage PRN. pp contraction: natural family planning pap: 01/01/2018 WNL Physical Exam: Normocephalic, atraumatic Heart RRR w/o M/G/R Lungs CTAB Abdomen gravid, soft, nontender FHR baseline 130s, moderate variability, + accels, no decels Contractions palpate firm every 2-4 minutes with soft resting tone SVE 7/90/-2, vertex. Bilateral LE's no edema Mood is good Assessment: 40yo @ 39.5wks gestation by 8.3wk U/S Active labor GBS POSITIVE FHR Category I Plan: Admit for expectant management Intermittent monitoring Declines intervention hemorrhage medications in the room Pt is type and crossed for 2 units Encouraged ambulation and position changes Anticipate .
[2021-05-20 10:54] LABS: BASOPHILS % (AUTO) 0.3 %; EOSINOPHILS # (AUTO) 0.2 10^3/uL (0.0-0.7); EOSINOPHILS % (AUTO) 2.4 %; HCT - HEMATOCRIT 40.6 % (37.0-47.0); HGB - HEMOGLOBIN 13.3 g/dL (12.0-16.0); LYMPHOCYTES % (AUTO) 14.5 %; MEAN CORPUSCULAR HEMOGLOBIN 28.2 pg (27.0-31.0); MEAN CORPUSCULAR HGB CONC 32.8 g/dL (32.0-36.0); MEAN CORPUSCULAR VOLUME 86.2 fL (81.0-99.0); MEAN PLATELET VOLUME 12.2 fL (7.9-10.8); MONOCYTES # (AUTO) 0.6 10^3/uL (0.0-1.0); MONOCYTES % (AUTO) 8.7 %; NEUTROPHILS # (AUTO) 4.8 10^3/uL (1.5-6.6); NEUTROPHILS % (AUTO) 73.5 %; PLT - PLATELET COUNT 216 10^3/uL (130-450); RED BLOOD COUNT 4.71 10^6/uL (4.20-5.40); RED CELL DISTRIBUTION WIDTH 15.7 % (12.0-15.0); WHITE BLOOD COUNT 6.6 x10^3/uL (4.8-10.8)
[2021-05-20] MEDS ORDERED: TRANEXAMIC ACID IN NACL 1,000 MG/100 ML BAG IV PRN (11:40)
[2021-05-20] MEDS ORDERED: CARBOPROST TROMETHAMINE 250 MCG/ML AMP IM PRN (11:40)
[2021-05-20] MEDS ORDERED: LIDOCAINE-MPF 1% 30 ML VIAL ID PRN (11:40)
[2021-05-20] MEDS ORDERED: WITCH HAZEL/GLYCERIN 1 PAD TOP PRN (14:24)
[2021-05-20] MEDS ORDERED: HYDROCORTISONE 1% CREAM 28 GM TUBE PR PRN (14:24)
--- NOTE | 2021-05-20 14:25 | DELIVERY NOTE ---
Delivery Note - Labor Labor: positive: Spontaneous - Delivery Method Delivery Method: positive: Spontaneous vaginal delivery - Presentation Presentation: positive: Vertex, GABY - right occiput anterior - Nuchal Cord Nuchal Cord: positive: Present, Reduced - Amniotic Fluid Description Amniotic Fluid Description: positive: Clear - Episiotomy Type Episiotomy Type: positive: None - Laceration Laceration: positive: None - Delivery Outcome Delivery Outcome: positive: Livebirth - : positive: Placed in direct skin contact with mother, Bulb syringe, Stimulated, Warmed, Ell[place] used sex: positive: Male - Cord Cord: positive: 3 vessels, True knot - Placenta Placenta: positive: Intact - Estimated Blood Loss Estimated Blood Loss (in cc): 250 - Post Delivery Events Post Delivery Events: positive: Shoulder dystocia - Delivery Comments (Free Text/Narrative) Delivery Comments (Free Text/Narrative): This 40yo @ 39.5wks gestation by 8.3wk U/S presents to [facility] with c/o contractions. Cervix was 7/90/-2, anterior and vertex. FHR pattern demonstrated Category I pattern throughout labor with intermittent heart rate auscultation consistently 125s-130s with no presence of decelerations. Pt was noted to be GBS positive and declined treatment. Normal labor course. Pt progressed to c/c/+1 @ 1317 with onset of active pushing at 1319. SROM occurred during pushing at 1327 and was noted to be a moderate amount of clear fluid. : Normal of 9lb3oz viable male on 05/20/2021 following a 60 second shoulder dystocia with delivery of head occurring at 1350 and complete delivery @ 1351 following McRobert's maneuver and onset of contraction. Infant was delivered in JAMAL position with right shoulder anterior. Nuchal cord x 1 was easily reduced. The was placed on maternal abdomen, stimulated, dried, and placed skin to skin. Apgars were 7/9 at 1 and 5 minutes respectively. Cord blood was obtained. 3VC. Cord was noted to have a true knot. The umbilical cord was allowed to stop pulsating at which time it was doubly clamped by CNM and cut by FOB. Fundal massage and gentle cord traction declined by patient and active management of the third stage including pitocin was declined by the patient. Placenta delivered spontaneously and intact at 1409. EBL 250mL. Fourth stage: Uterine fundus firm and there is no excessive bleeding. The perineum, vagina, and cervix were inspected and noted to be intact. initiated. Family bonding well. Both mother and baby were left in stable condition.
[2021-05-20] MEDS ORDERED: IBUPROFEN 800 MG TABLET PO SCH (15:00)
[2021-05-20] MEDS ORDERED: ACETAMINOPHEN 500 MG TABLET PO SCH (15:00)
[2021-05-20] MEDS ORDERED: DOCUSATE SODIUM 100 MG CAPSULE PO SCH (21:00)
[2021-05-22 08:30] VITALS: BP 119/74
[2021-05-22] MEDS ORDERED: RHO(D) IMMUNE GLOBULIN 300 MCG SYRINGE IM ONE (12:11)
--- NOTE | 2021-05-22 12:13 | Discharge Plan ---
Discharge Plan Problem Reviewed?: Yes Disposition: Home, Self Care Condition: Good Diet: Regular Activity Restrictions: No Restrictions Shower Restrictions: No Driving Restrictions: No Weight Bearing: Full Weight Instruction Topics: Vaginal After No Smoking: If you smoke, Please STOP! Call for help. Follow-up with: Noa Looney CNM, ARNP [Provider Admit Priv/Credential] - 1 Week
--- NOTE | 2021-05-22 14:22 | Labor Flowsheet ---
Labor Flowsheet Datetime Report Generated by CPN: 05/22/2021 14:22 Datetime: 05/22/2021 08:16 VITAL SIGNS NBP Sys/Roula/Mean (mmHg): 119 : 74 : 84 Pulse: 90 Datetime: 05/20/2021 15:39 VAGINAL EXAM Membranes Ruptured Date/Time: 05/20/2021 13:27 Membranes Rupture Method: Spontaneous Amniotic Fluid Color: Clear Amniotic Fluid Amount: Moderate Datetime: 05/20/2021 10:37 UTERINE ACTIVITY Monitor Mode: Palpation Frequency (min): 3 Quality: Strong Duration (sec): 40-60 Pattern: Normal: <= 5 Contractions in 10 Minutes Resting Tone (Palpate): Relaxed ASSESSMENT A Monitor Mode: External US FHR Baseline Rate : 130 Variability: Moderate 6-25 bpm Accelerations: 15X15 Decelerations: None Category: Category I PATIENT CARE Oxygen Method: Room Air
--- NOTE | 2021-05-31 11:28 | DISCHARGE SUMMARY ---
Discharge Summary Condition at Discharge: Good Discharge Disposition: 01 Home, Self Care - HOSPITAL COURSE Hospital Course: Date of Admission: 05/20/2021 Date of Discharge: 05/22/2021 Diagnosis on Admission: 1. 40yo @ 39.5wks gestation by 8.3wk U/S 2. Active labor 3. GBS POSITIVE 4. FHR Category I Diagnosis on Discharge: 1. 40yo s/p TSVD viable male 2. 3. Normal recovery Brief History: She is a patient of [facility] who presented on 05/20/2021 with c/o contractions. Upon arrival SVE /-2 with intact membranes. Pt was noted to be GBS positive and she declined IV access and declined treatment of GBS despite associated risks. Pt was expectantly managed. She progressed spontaneously to deliver a viable male in hugh on 05/23/2021 at 1315 following a 60 second shoulder dystocia. Apgars were 7/9 at 1 and 5 minutes respectively. EBL 250mL. Perineum intact. She has been doing well in her course. She is ambulating and tolerating a regular diet. She is urinating without difficulty and her lochia is normal. Her pain is well controlled without the use of any medications. She is without difficulty and bonding well with her baby. She will be discharged home today on day #2 with instructions to continue taking her vitamin while . We reviewed the recommendations for over the counter ibuprofen and tylenol if needed for pain management. She intends to follow up with myself at [facility] in 1 week for routine visit or sooner if needed. She has been given precautions to call if she has any worsening fevers, chills, abdominal pain, increased bleeding or foul smelling vaginal lochia. She verbalized understanding and agrees to abov e plan. She denies further questions or concerns at this time. - ALLERGIES Allergies/Adverse Reactions: Allergies Allergy/AdvReac Type Severity Reaction Status Date / Time No Known Drug Allergies Allergy Verified 08/02/20 20:18 - LABS Result Diagrams: 05/20/21 10:43
--- NOTE | 2021-05-31 11:53 | PROVIDER PROGRESS NOTE ---
Subjective - Subjective Subjective: S: Bonding well with baby. without difficulty. Bleeding decreased and is light. pain well controlled without the use of any medications. She states she has some increased cramping but otherwise denies pain. She is well supported by her and is happy to stay another day for monitoring of her baby as she was not adequately treated for GBS in labor. O: Heart RRR w/o M/G/R, lungs CTAB, abdomen soft and nontender with fundus firm and U, perineum intact, light lochia rubra, bilateral LE's trace edema. A: 40yo -->P7 PPD#1 s/p TSVD viable male Normal Recovery Rhogam administered P: Continue routine pp care and medications Evaluate for discharge home tomorrow. Objective - Lab Results Fish Bones: 05/20/21 10:43
== END 2021-05-22 14:22 | disposition home or self-care (01) | DRG 806 ==
LOC: WFO 09:56 → FBP 10:01 → WFO 10:20 → FBP 10:21
PROVIDERS: ADMIT Nurse Practitioner Obstetrics & Gynecology; ATTEND Nurse Practitioner Obstetrics & Gynecology
PROC: 10E0XZZ Delivery of Products of Conception, External Approach (ICD-10-PCS; principal; 2021-05-20)
DX: O66.0 Obstructed labor due to shoulder dystocia (principal); O36.0930 Maternal care for other rhesus isoimmunization, third trimester, not applicable or unspecified; Z37.0 Single live birth; O99.824 Streptococcus B carrier state complicating childbirth; O69.81X0 Labor and delivery complicated by cord around neck, without compression, not applicable or unspecified; Z3A.39 39 weeks gestation of pregnancy
CPT/HCPCS: 36415; 83033; 85025; 86850; 86900; 86901; 86920; A9270; 99215

== ENCOUNTER 2021-06-02 14:19 | Outpatient (CLI) | payer OTHER ==
--- NOTE | 2021-06-03 07:35 | Ultrasound Report ---
LIMITED ULTRASOUND OF RIGHT BREAST AND AXILLA: 06/02/2021 CLINICAL: Palpable right axilla lump. No prior exams were available for comparison. Color flow and real-time ultrasound of the right breast axilla were performed on the areas of [facility] t. Gibbs scale images of the real-time examination were reviewed. There is a 2.1 cm x 0.9 cm x 2 cm oval mass with indistinct and circumscribed margins in the right ax illa. This oval mass is of mixed echogenicity with posterior acoustic enhancement. This correlates as palpated. Color flow imaging demonstrates that there is vascularity present. IMPRESSION: SUSPICIOUS OF MALIGNANCY The 2.1 cm x 0.9 cm x 2 cm oval mass is suspicious of malignancy. An ultrasound guided biopsy is rec ommended. The findings were discussed with the patient at the conclusion of the study. This exam was interpreted at Station ID: [id number]. Electronically Signed By: Hilario Fraser M.D. ddp/:06/02/2021 16:24:20 Ultrasound BI-RADS: 4 Suspicious for malignancy BI-RADS CATEGORY: (4) - 4 None [id number] Immediate follow-up LATERALITY: ()
== END 2021-06-02 14:20 | disposition home or self-care (01) ==
LOC: DI 14:19
PROVIDERS: ATTEND Nurse Practitioner Obstetrics & Gynecology
DX: N63.31 Unspecified lump in axillary tail of the right breast (principal)

== ENCOUNTER 2023-07-02 08:01 | Outpatient (CLI) | payer OTHER ==
[2023-07-02] MEDS: ALBUTEROL 1 PUFF INH STA (12:18)
== END 2023-07-02 08:02 | disposition home or self-care (01) ==
LOC: RT 08:01
PROVIDERS: ATTEND Nurse Practitioner Obstetrics & Gynecology
DX: R06.00 Dyspnea, unspecified (principal)
CPT/HCPCS: 94060; 94727; 94729

== ENCOUNTER 2023-08-02 08:55 | Outpatient (CLI) | payer OTHER ==
--- NOTE | 2023-08-03 08:38 | Ultrasound Report ---
ULTRASOUND OF RIGHT AXILLA: 08/02/2023 CLINICAL: Right axilla lump follow up. Comparison is made to exams dated: 08/02/2023 mammogram and 06/02/2021 ultrasound - [facility]. Color flow ultrasound of the right axilla was performed. Gibbs scale images of the real-time examinat ion were reviewed. Interval resolution of complex cystic mass in the right axilla. Per report, there has been an excisio nal biopsy with benign results. Normal lymph nodes are seen. No suspicious sonographic findings. IMPRESSION: NEGATIVE There is no sonographic abnormalities in the axilla. Return to annual mammogram screening schedule is recommended. Findings and recommendations were conveyed to the patient at time of exam. This exam was interpreted at Station ID: [id number]. Electronically Signed By: Karissa michael/:08/02/2023 09:59:05 letter sent: No_Letter Ultrasound BI-RADS: 1 Negative BI-RADS CATEGORY: (1) - 1 RECOMMENDATION: (ANNUAL) - Recommend routine annual screening mammography. [id number] return to screening LATERALITY: (B)
--- NOTE | 2023-08-03 08:38 | Mammography Report ---
BILATERAL DIGITAL DIAGNOSTIC MAMMOGRAM 3D/2D WITH EXAGGERATED CC: 08/02/2023 CLINICAL: Baseline exam. Follow up of abnormal breast Ultrasound. Comparison is made to exam dated: 06/02/2021 ultrasound - [facility]. Both breasts are heterogeneously dense, which may obscure small masses (category c / 51-75% glandular tissue). No significant masses, calcifications, or other findings are seen in either breast. Specifically, no finding in the right axilla to correlate to the previously seen complex cystic mass. Bilateral mammo grams appear normal. IMPRESSION: INCOMPLETE: NEEDS ADDITIONAL IMAGING EVALUATION Baseline bilateral mammograms appear normal. Annual screening mammography is recommended. Right axillary ultrasound is recommended to follow the complex cystic axillary mass previously seen o n ultrasound, and reportedly excised. This was performed immediately following this exam. Based on the Tyrer Cuzick model (a risk assessment model) the patient's lifetime risk is 9.4% and her 10 year risk is 1.2%. According to the ACR, ACS, and NCCN guidelines, an annual breast MRI exam [place] with mammogram is recommended if the patient's lifetime risk is 20% or greater. This exam was interpreted at Station ID: [id number]. NOTE: For mammograms, a report in lay terms will be sent to the patient. Approximately 15% of breast malignancies will not be visualized mammographically. In the management of a palpable breast mass, a negative mammogram must not discourage biopsy of a clinically suspicious lesion. Electronically Signed By: Karissa michael/:08/02/2023 09:40:57 ACR BI-RADS Category 0: Incomplete [id number] PARENCHYMAL PATTERN: (D) - The breast(s) demonstrate(s) heterogeneously dense fibroglandular tonya veras. BI-RADS CATEGORY: (0) - 0 Ultrasound [id number] Immediate follow-up LATERALITY: (B)
== END 2023-08-02 08:56 | disposition home or self-care (01) ==
LOC: DI 08:55
PROVIDERS: ATTEND Nurse Practitioner Obstetrics & Gynecology
DX: R92.8 Other abnormal and inconclusive findings on diagnostic imaging of breast (principal); R92.333 Mammographic heterogeneous density, bilateral breasts